=== PATIENT | male | born 1980 | race Caucasian/White ===

== ENCOUNTER 2016-12-02 02:09 | Emergency (ER) | payer OTHER ==
[~2016-12-02] VITALS: Ht 167.6 cm; Wt 93.3 kg
[2016-12-02] MEDS ORDERED: PERCOCET 5/31 TABLET PO (03:35)
[2016-12-02] MEDS ORDERED: MEDROL DOSEPAK4 MG PO (03:35)
[2016-12-02 03:57] VITALS: BP 105/65
== END 2016-12-02 03:58 | disposition home or self-care (01) ==
LOC: EME 02:09
DX: M79.674 Pain in right toe(s) (principal)
CPT/HCPCS: 73630; 99281; 99284; J7512

== ENCOUNTER 2016-12-11 08:31 | Emergency (ER) | payer OTHER ==
[~2016-12-11] VITALS: Ht 167.6 cm; Wt 92.2 kg
[~2016-12-11 08:31] MED LIST: MEDROL DOSEPAK4 MG PO; PERCOCET 5/31 TABLET PO
[2016-12-11 08:33] VITALS: BP 102/81
[2016-12-11] MEDS ORDERED: KEFLEX500 MG PO (08:53)
[2016-12-11] MEDS ORDERED: BACTRIM,SEPT1 TABLET PO (08:53)
[2016-12-11] MEDS ORDERED: NAPROSYN500 MG PO (08:53)
== END 2016-12-11 09:28 | disposition home or self-care (01) ==
LOC: EME 08:31
PROC: 0H9BXZZ Drainage of Right Upper Arm Skin, External Approach (ICD-10-PCS; principal; 2016-12-11)
DX: L02.411 Cutaneous abscess of right axilla (principal); Z86.14 Personal history of Methicillin resistant Staphylococcus aureus infection
CPT/HCPCS: 99281; 99284

== ENCOUNTER 2017-02-11 11:18 | Emergency (ER) | payer OTHER ==
[~2017-02-11] VITALS: Ht 167.6 cm; Wt 85.7 kg
[~2017-02-11 11:18] MED LIST changes: +BACTRIM,SEPT1 TABLET PO; +KEFLEX500 MG PO; +NAPROSYN500 MG PO
[2017-02-11] MEDS ORDERED: NEURONTIN100 MG PO (11:26)
[2017-02-11 12:11] LABS: EOSINOPHIL (%) 0.1 % (0-5); HEMATOCRIT 46.8 % (38.0-50.0); IMMATURE GRANULOCYTE (%) 0.7 % (0.0-0.7); IMMATURE GRANULOCYTE COUNT 0.2 K/uL; INSTRUMENT ABS NEUTROPHIL CT 20.5 K/uL; LYMPHOCYTE COUNT 0.7 K/uL (1.0-2.8); MCH 31.9 PG (29.0-34.0); MCHC 32.7 G/DL (30.0-36.0); MCV 97.7 FL (86-99); MEAN PLAT.VOLUME 10.7 uM^3 (9.0-12.4); MONOCYTE (%) 5.5 % (3-12); MONOCYTE COUNT 1.2 K/uL (0-0.8); NEUTROPHIL (%) 90.6 % (45-76); NEUTROPHIL COUNT 20.5 K/uL (1.8-6.4); PLATELET COUNT 257 K/uL (156-360); RBC DIS.WIDTH-CV 13.7 % (11.8-14.6); RBC DIS.WIDTH-SD 50.3 % (39-53); RED BLOOD COUNT 4.79 M/uL (4.00-5.50); WHITE BLOOD COUNT 22.7 K/uL (4.1-10.2)
[2017-02-11 12:20] LABS: CHLORIDE 103 mEq/L (99-109); POTASSIUM 4.4 mEq/L (3.7-5.4); SODIUM 140 mEq/L (136-147)
[2017-02-11 12:22] LABS: GLUCOSE 244 mg/dL (70-99)
[2017-02-11 12:23] LABS: ANION GAP 14 MEQ/L (2-14)
[2017-02-11 12:25] LABS: SERUM ETHYL ALCOHOL < 10 mg/dL
[2017-02-11 12:27] LABS: UREA NITROGEN (BUN) 13 mg/dL (9-23)
[2017-02-11 12:30] LABS: GFR ESTIMATE (CALCULATED) 56 mL/min/
[2017-02-11 13:20] LABS: AMPHETAMINE NEGATIVE (500 ng/mL); BARBITURATES NEGATIVE (200 ng/mL); BENZODIAZEPINES PRESUMPTIVE POSITIVE (150 ng/mL); COCAINE PRESUMPTIVE POSITIVE (150 ng/mL); INTERNAL CONTROLS VALID? YES; METHADONE PRESUMPTIVE POSITIVE (200 ng/mL); METHAMPHETAMINE NEGATIVE (500 ng/mL); OPIATES (MORPHINE) PRESUMPTIVE POSITIVE (100 ng/mL); OXYCODONE NEGATIVE (100 ng/mL); PHENCYCLIDINE NEGATIVE (25 ng/mL); PROPOXYPHENE NEGATIVE (300 ng/mL); THC CANNABINOIDS PRESUMPTIVE POSITIVE (50 ng/mL); TRICYCLIC ANTIDEPRESSANTS NEGATIVE (300 ng/mL)
[2017-02-11 13:21] LABS: ADD MEDTOX COMMENT Y
[2017-02-11 14:07] VITALS: BP 92/69
[2017-02-11 14:13] LABS: BENZODIAZEPINES, URINE SCREEN POSITIVE (200 ng/mL)
== END 2017-02-11 14:26 | disposition home or self-care (01) ==
LOC: EME 11:18 → EDBD 11:18 → EME 14:26
PROVIDERS: Emergency Medicine
DX: T42.6X1A Poisoning by other antiepileptic and sedative-hypnotic drugs, accidental (unintentional), initial encounter (principal); F17.200 Nicotine dependence, unspecified, uncomplicated
CPT/HCPCS: 80048; 84999; 85025; 99281; 99285; G0480; J2310

== ENCOUNTER 2017-02-16 00:52 | Emergency (ER) | payer OTHER ==
[~2017-02-16] VITALS: Ht 167.6 cm; Wt 91.2 kg
[~2017-02-16 00:52] MED LIST changes: +NEURONTIN100 MG PO
[2017-02-16] MEDS ORDERED: NARCAN4 MG NS (02:35)
[2017-02-16] MEDS ORDERED: AUGMENTIN875 MG PO (02:35)
[2017-02-16] MEDS ORDERED: PROAIR HFA8.5 GM IH (02:35)
[2017-02-16 02:57] VITALS: BP 113/91
== END 2017-02-16 03:03 | disposition left against medical advice (07) ==
LOC: EME → EDBD 00:52 → EME 03:03
DX: T40.1X1A Poisoning by heroin, accidental (unintentional), initial encounter (principal); J69.0 Pneumonitis due to inhalation of food and vomit; F17.200 Nicotine dependence, unspecified, uncomplicated
CPT/HCPCS: 71010; 99281; 99284

== ENCOUNTER 2017-02-19 16:47 | Emergency (ER) | payer OTHER ==
[~2017-02-19] VITALS: Ht 167.6 cm; Wt 84.6 kg
[~2017-02-19 16:47] MED LIST changes: +AUGMENTIN875 MG PO; +NARCAN4 MG NS; +PROAIR HFA8.5 GM IH
[2017-02-19 17:17] LABS: HEMATOCRIT 42.6 % (38.0-50.0); MCH 32.1 PG (29.0-34.0); MCHC 33.6 G/DL (30.0-36.0); MCV 95.5 FL (86-99); MEAN PLAT.VOLUME 9.8 uM^3 (9.0-12.4); PLATELET COUNT 286 K/uL (156-360); RBC DIS.WIDTH-CV 13.7 % (11.8-14.6); RBC DIS.WIDTH-SD 48.1 % (39-53); RED BLOOD COUNT 4.46 M/uL (4.00-5.50)
[2017-02-19 17:19] LABS: WHITE BLOOD COUNT 9.1 K/uL (4.1-10.2)
[2017-02-19 17:26] LABS: CHLORIDE 104 mEq/L (99-109); POTASSIUM 3.4 mEq/L (3.7-5.4); SODIUM 142 mEq/L (136-147)
[2017-02-19 17:27] LABS: GLUCOSE 103 mg/dL (70-99)
[2017-02-19 17:29] LABS: ANION GAP 13 MEQ/L (2-14)
[2017-02-19 17:31] LABS: GFR ESTIMATE (CALCULATED) 56 mL/min/
[2017-02-19 17:32] LABS: UREA NITROGEN (BUN) 10 mg/dL (9-23)
[2017-02-19 18:50] LABS: D-DIMER ELISA 1.48 mg/L FEU (< 0.57)
[2017-02-19 19:15] LABS: TROP-I INTERPRETATION NEGATIVE; TROPONIN-I < 0.01 ng/mL (0.0-0.30)
[2017-02-19 20:26] VITALS: BP 110/65
== END 2017-02-19 20:29 | disposition home or self-care (01) ==
LOC: EME 16:47
DX: J18.9 Pneumonia, unspecified organism (principal); F17.200 Nicotine dependence, unspecified, uncomplicated; F19.10 Other psychoactive substance abuse, uncomplicated
CPT/HCPCS: 71020; 71275; 80048; 84484; 85027; 85379; 93005; 99281; 99284; J7030

== ENCOUNTER 2017-04-26 20:23 | Emergency (ER) | payer OTHER ==
[~2017-04-26] VITALS: Ht 167.6 cm; Wt 83.9 kg
[2017-04-26 21:24] LABS: HEMATOCRIT 42.3 % (38.0-50.0); MCHC 33.3 G/DL (30.0-36.0); MCV 95.9 FL (86-99); MEAN PLAT.VOLUME 10.3 uM^3 (9.0-12.4); PLATELET COUNT 275 K/uL (156-360); RBC DIS.WIDTH-CV 13.6 % (11.8-14.6); RBC DIS.WIDTH-SD 48.5 % (39-53); RED BLOOD COUNT 4.41 M/uL (4.00-5.50); WHITE BLOOD COUNT 6.1 K/uL (4.1-10.2)
[2017-04-26 21:57] LABS: ANION GAP 11 MEQ/L (2-14); CHLORIDE 108 MEQ/L (99-109); GFR ESTIMATE (CALCULATED) > 59 mL/min/; GLUCOSE 92 mg/dL (70-99); POTASSIUM 4.2 MEQ/L (3.7-5.4); SAMPLE HEMOLYSIS CHECK 0; SAMPLE ICTERIC CHECK 0; SAMPLE LIPEMIA CHECK 0; SODIUM 143 MEQ/L (136-147); UREA NITROGEN (BUN) 14 mg/dL (9-23)
[2017-04-26 22:54] VITALS: BP 109/64
== END 2017-04-26 22:55 | disposition home or self-care (01) ==
LOC: EME 20:23 → RME 20:23
PROVIDERS: Physician Assistant
DX: S30.1XXA Contusion of abdominal wall, initial encounter (principal); W01.0XXA Fall on same level from slipping, tripping and stumbling without subsequent striking against object, initial encounter; F17.200 Nicotine dependence, unspecified, uncomplicated
CPT/HCPCS: 74177; 80048; 85027; 99281; 99284

== ENCOUNTER 2018-05-11 00:49 | Emergency (ER) | payer OTHER ==
[~2018-05-11] VITALS: Ht 167.6 cm; Wt 84.4 kg
[2018-05-11 01:02] VITALS: BP 103/77
== END 2018-05-11 01:11 | disposition home or self-care (01) ==
LOC: EME 00:49
DX: F10.129 Alcohol abuse with intoxication, unspecified (principal); Z02.89 Encounter for other administrative examinations; F17.200 Nicotine dependence, unspecified, uncomplicated; Y90.9 Presence of alcohol in blood, level not specified
CPT/HCPCS: 99281; 99282

== ENCOUNTER 2018-05-14 19:57 | Emergency (ER) | payer OTHER ==
[~2018-05-14] VITALS: Ht 167.6 cm; Wt 85.1 kg
[2018-05-14 20:26] LABS: BASOPHIL (%) 0.6 % (0-1); EOSINOPHIL (%) 6.3 % (0-5); EOSINOPHIL COUNT 0.3 K/uL (0-0.3); HEMATOCRIT 43.3 % (38.0-50.0); HEMOGLOBIN 14.7 G/DL (12.5-16.6); IMMATURE GRANULOCYTE (%) 0.4 % (0.0-0.7); LYMPHOCYTE (%) 38.7 % (15-42); MCH 33.6 PG (29.0-34.0); MCHC 33.9 G/DL (30.0-36.0); MCV 99.1 FL (86-99); MONOCYTE (%) 6.7 % (3-12); MONOCYTE COUNT 0.3 K/uL (0-0.8); NEUTROPHIL (%) 47.3 % (45-76); NEUTROPHIL COUNT 2.4 K/uL (1.8-6.4); PLATELET COUNT 277 K/uL (156-360); RBC DIS.WIDTH-CV 13.2 % (11.8-14.6); RBC DIS.WIDTH-SD 47.7 % (39-53); RED BLOOD COUNT 4.37 M/uL (4.00-5.50)
[2018-05-14 20:35] LABS: ALBUMIN 4.5 g/dL (3.2-4.8); CHLORIDE 114 mEq/L (99-109); POTASSIUM 4.7 mEq/L (3.7-5.4); SODIUM 148 mEq/L (136-147)
[2018-05-14 20:37] LABS: GLUCOSE 95 mg/dL (70-99); TOTAL PROTEIN 8.4 g/dL (6.4-8.3)
[2018-05-14 20:39] LABS: TOTAL BILIRUBIN 0.1 mg/dL (0.0-1.0)
[2018-05-14 20:40] LABS: SERUM ETHYL ALCOHOL 350 mg/dL
[2018-05-14 20:41] LABS: ALKALINE PHOSPHATASE 110 IU/L (3-129); CREATININE 1.1 mg/dL (0.6-1.3); GFR ESTIMATE (CALCULATED) > 59 mL/min/ (58.99-99999)
[2018-05-14 20:42] LABS: AST (GOT) 30 IU/L (2-34); UREA NITROGEN (BUN) 12 mg/dL (9-23)
[2018-05-14 20:44] LABS: ALT (GPT) 14 IU/L (3-49)
[2018-05-15 06:33] VITALS: BP 106/73
== END 2018-05-15 06:34 | disposition home or self-care (01) ==
LOC: EME → EDBD 19:57 → EME 19:57
PROVIDERS: Emergency Medicine
DX: F10.129 Alcohol abuse with intoxication, unspecified (principal); Y90.8 Blood alcohol level of 240 mg/100 ml or more
CPT/HCPCS: 80053; 81003; 85025; 99281; 99283; G0480

== ENCOUNTER 2018-05-18 20:25 | Emergency (ER) | payer OTHER ==
[2018-05-18 20:43] LABS: BASOPHIL (%) 0.5 % (0-1); EOSINOPHIL (%) 1.7 % (0-5); EOSINOPHIL COUNT 0.1 K/uL (0-0.3); HEMATOCRIT 43.5 % (38.0-50.0); HEMOGLOBIN 15.1 G/DL (12.5-16.6); IMMATURE GRANULOCYTE (%) 0.2 % (0.0-0.7); LYMPHOCYTE (%) 31.1 % (15-42); MCH 33.6 PG (29.0-34.0); MCHC 34.7 G/DL (30.0-36.0); MCV 96.7 FL (86-99); MONOCYTE (%) 5.9 % (3-12); MONOCYTE COUNT 0.4 K/uL (0-0.8); NEUTROPHIL (%) 60.6 % (45-76); NEUTROPHIL COUNT 3.9 K/uL (1.8-6.4); PLATELET COUNT 298 K/uL (156-360); RBC DIS.WIDTH-CV 13.4 % (11.8-14.6); RBC DIS.WIDTH-SD 48.3 % (39-53); WHITE BLOOD COUNT 6.4 K/uL (4.1-10.2)
[2018-05-18 21:03] LABS: AMYLASE 53 IU/L (1-118); CHLORIDE 107 mEq/L (99-109); SODIUM 144 mEq/L (136-147)
[2018-05-18 21:03] LABS: APPEARANCE CLEAR ((CLEAR)); BILIRUBIN NEGATIVE; BLOOD SMALL; COLOR STRAW ((YELLOW)); GLUCOSE (STRIP) NEGATIVE; KETONES NEGATIVE; LEUKOCYTES NEGATIVE; NITRITE NEGATIVE; PROTEIN (STRIP) NEGATIVE; SPECIFIC GRAVITY 1.005 (1.000-1.030); UROBILINOGEN 0.2 MG/DL (0.2-1.0)
[2018-05-18 21:04] LABS: POTASSIUM 3.6 mEq/L (3.7-5.4)
[2018-05-18 21:05] LABS: GLUCOSE 117 mg/dL (70-99)
[2018-05-18 21:08] LABS: SERUM ETHYL ALCOHOL 313 mg/dL
[2018-05-18 21:09] LABS: CREATININE 1.2 mg/dL (0.6-1.3); GFR ESTIMATE (CALCULATED) > 59 mL/min/ (58.99-99999); UREA NITROGEN (BUN) 14 mg/dL (9-23)
[2018-05-18 21:12] LABS: LIPASE 31 U/L (1.0-51.0)
[2018-05-18 21:16] LABS: AMPHETAMINE NEGATIVE (500 ng/mL); BARBITURATES NEGATIVE (200 ng/mL); BENZODIAZEPINES NEGATIVE (150 ng/mL); BUPRENORPHINE NEGATIVE (10 ng/mL); COCAINE NEGATIVE (150 ng/mL); METHADONE NEGATIVE (200 ng/mL); METHAMPHETAMINE NEGATIVE (500 ng/mL); OPIATES (MORPHINE) NEGATIVE (100 ng/mL); OXYCODONE NEGATIVE (100 ng/mL); PHENCYCLIDINE NEGATIVE (25 ng/mL); PROPOXYPHENE NEGATIVE (300 ng/mL); THC CANNABINOIDS NEGATIVE (50 ng/mL); TRICYCLIC ANTIDEPRESSANTS NEGATIVE (300 ng/mL)
[2018-05-18 21:25] LABS: BACTERIA NONE SEEN /HPF; EPITHELIAL CELLS NONE SEEN /HPF; MUCUS TRACE /LPF; RED BLOOD CELLS 0-5 /HPF (0-5); UCUL ADDED? NO; WHITE BLOOD CELLS 0-5 /HPF (0-5)
== END 2018-05-18 22:28 ==
LOC: TRA 20:25
PROVIDERS: Emergency Medicine
DX: S51.812A Laceration without foreign body of left forearm, initial encounter (principal); S01.311A Laceration without foreign body of right ear, initial encounter; S21.112A Laceration without foreign body of left front wall of thorax without penetration into thoracic cavity, initial encounter; X99.9XXA Assault by unspecified sharp object, initial encounter; Y93.89 Activity, other specified; Y92.009 Unspecified place in unspecified non-institutional (private) residence as the place of occurrence of the external cause; M50.31 Other cervical disc degeneration, high cervical region; K76.0 Fatty (change of) liver, not elsewhere classified; F17.200 Nicotine dependence, unspecified, uncomplicated
CPT/HCPCS: 70450; 71045; 71250; 72125; 73090; 74176; 80048; 81003; 82150; 83690; 85025; 86850; 86900; 86901; 99281; 99285; G0480